=== PATIENT | male | born 1980 | race Asian ===

== ENCOUNTER 2018-11-21 06:01 | Emergency (ER) | payer OTHER ==
[~2018-11-21] VITALS: Ht 188 cm; Wt 136.1 kg
[2018-11-21] MEDS ORDERED: SEROQUEL50 MG ORAL (06:11)
[2018-11-21 06:12] VITALS: BP 143/89
--- NOTE | 2018-11-21 06:12 | NUR ---
ED Nurse Note: Patient presents with complaints of tooth ache.
[2018-11-21] MEDS ORDERED: IBUPROFEN600 MG ORAL (06:20)
[2018-11-21] MEDS ORDERED: HYDROCODON-ACE1 EA15 ORAL (06:20)
[2018-11-21] MEDS ORDERED: AMOXICILLIN500 MG ORAL (06:20)
--- NOTE | 2018-11-21 06:20 | Emergency Room Report ---
History of Present Illness General Chief Complaint: Pain Source: Patient Present Illness HPI This is a 38-year-old male with no past medical history. He presents with left facial pain. Onset for week but worse tonight. Pain is 9 out of 10. Worse with eating and palpation. No facial swelling. No fever chills. But with Advil. He has an appointment with dentist at 7:50 AM today. No other complaint. Allergies: Uncoded Allergies: CATS (Allergy, Unknown, 11/21/18) Patient History Past Medical History: see triage record, old chart reviewed Past Surgical History: other Pertinent Family History: none Social History: Denies: smoking Immunizations: other Reviewed Nursing Documentation: PMH: Agreed; PSxH: Agreed Nursing Documentation-PMH Past Medical History: No Stated History Review of Systems Eye: Denies: eye pain, blurred vision ENT: Denies: ear pain, nose congestion, throat swelling Respiratory: Denies: cough, shortness of breath Cardiovascular: Denies: chest pain, palpitations Gastrointestinal: Denies: abdominal pain, diarrhea, nausea, vomiting Musculoskeletal: Denies: back pain, joint pain Skin: Denies: rash Neurological: Denies: headache, numbness Endocrine: Denies: increased thirst, increased urine Hematologic/Lymphatic: Denies: easy bruising All Other Systems: negative except mentioned in HPI Physical Exam Vital Signs Date Time Temp Pulse Resp B/P (MAP) Pulse Ox O2 Delivery O2 Flow Rate FiO2 11/21/18 06:08 97.7 89 16 143/89 95 Room Air vitals normal Sp02 EP Interpretation: reviewed, normal General Appearance: well appearing, no apparent distress, alert Head: normocephalic, atraumatic Eyes: bilateral eye PERRL, bilateral eye EOMI ENT: hearing grossly normal, normal pharynx, other - Percussive tenderness to the first left upper molar. No abscess seen. Neck: full range of motion, supple, no meningismus Respiratory: chest non-tender, lungs clear, normal breath sounds Cardiovascular #1: regular rate, rhythm, no murmur Gastrointestinal: normal bowel sounds, non tender, no mass, no organomegaly, no bruit, non-distended Musculoskeletal: back normal, gait/station normal, normal range of motion Psychiatric: mood/affect normal Skin: warm/dry Medical Decision Making Diagnostic Impression: Primary Impression: Pain, dental ER Course Patient with dental pain probably secondary to infection. We'll put on antibiotics. No abscess to twice a day. We'll discharge home with follow-up with dentist later. Last Vital Signs Date Time Temp Pulse Resp B/P (MAP) Pulse Ox O2 Delivery O2 Flow Rate FiO2 11/21/18 06:08 97.7 89 16 143/89 95 Room Air Status: unchanged Disposition: HOME, SELF-CARE Condition: Stable Scripts Ibuprofen* (MOTRIN*) 600 Mg Tablet 600 MG ORAL THREE TIMES A DAY, #30 TAB 0 Refills Prov: Akhil Crespo MD 11/21/18 Hydrocodone/Acetaminophen 5-325* (HYDROCODONE/ACETAMINOPHEN 5-325*) 1 Each Tablet 1 TAB ORAL Q6H PRN for For Pain, #15 TAB 0 Refills Prov: Akhil Crespo MD 11/21/18 Amoxicillin* (AMOXIL*) 500 Mg Capsule 500 MG ORAL THREE TIMES A DAY, #21 CAP Prov: Akhil Crespo MD 11/21/18 Additional Instructions: Keep your appointment with dentist today. Return if symptom worsen. Akhil Crespo MD Nov 21, 2018 06:20
[2018-11-21 06:26] VITALS: BP 143/89
--- NOTE | 2018-11-21 06:26 | NUR ---
ED Nurse Note: Patient rendered pain medication. patient cleared for discharge by ERMD, patient is A&Ox, ambulatory with steady gait. ID band removed, patient departed with all personal belongings.
== END 2018-11-21 06:50 | disposition home or self-care (01) ==
LOC: EMR 06:36
DX: K08.89 Other specified disorders of teeth and supporting structures (principal); R51 Headache
CPT/HCPCS: 99282